=== PATIENT | male | born 1995 | race Caucasian/White ===

== ENCOUNTER 2016-06-25 17:28 | Emergency (ER) | payer BC ==
[~2016-06-25] VITALS: Ht 172.7 cm; Wt 82.0 kg
--- OUTSIDE RECORDS SUMMARY | 2016-06-25 17:32 | XMS REPORT | Referral Summary ---
Author Author [facility], Family [facility] Organization [facility] Address Unknown Phone Unavailable Care Team Providers Care Senior Administrative Services Officer Name Role Phone Andrew Perez Primary Care Physician [phone] Encounter VC Date(s): 06/27/15 - 06/27/15 [facility] [address] [place] [id number]- Discharge Disposition: 01-Home or Self Care Attending Physician: Andrew Perez DO Admitting Physician: Andrew Perez DO Vital Signs Most recent to 1 oldest [Reference Range]: Temperature Tympanic 36.4 degC [36.6-38.1 degC] *LOW* (06/27/15 1:58 PM) Peripheral Pulse 63 bpm Rate [60-100 bpm] (06/27/15 1:58 PM) Blood Pressure 115/70 mmHg [90-140/60-90 mmHg] (06/27/15 1:58 PM) Problem List No data available for this section Allergies, Adverse Reactions, Alerts No Known Medication Allergies Medications amoxicillin 875 mg oral tablet 875 mg 1 tabs, Oral, BID, X 10 days, # 20 tabs, 0 Refill(s), Pharmacy: [id number], 1 tabs Oral BID,x10 days Start Date: 06/27/15 Stop Date: 07/07/15 Status: Ordered Results No data available for this section Immunizations No data available for this section Procedures Procedure Date Related Diagnosis Body Site Internal fixation1 2010 1Left radial fx surgical repair Social History Social History Type Response Smoking Status Never smoker Assessment and Plan Extracted from: Title: Office Visit Note Author: Andrew Perez DO Date: 06/27/15 Assessment/Plan Acute bacterial pharyngitis 1. She bacterial pharyngitis. 2. Tessalon twice a day for 10 days. 3. Ibuprofen or Tylenol for the discomfort. Ordered: Office Visit Level 3 [place] [address] Orders: amoxicillin, 875 mg 1 tabs, Oral, BID, X 10 days, # 20 tabs, 0 Refill( s), Pharmacy: [id number], 1 tabs Oral BID,x10 days
--- OUTSIDE RECORDS SUMMARY | 2016-06-25 17:32 | XMS REPORT | Continuity of Care Document ---
Author Author [facility] Organization [facility] Address Unknown Phone Unavailable Allergies Active Description Code Type Severity Reaction Onset Reported/Identified Relationship to Patient Clinical Status Yes No Known Medication Allergies NKMA N/A N/A Medications Problems Procedures Results Encounters ACCT No. Visit Date/Time Discharge Status Pt. Type Provider Facility Loc./Unit Complaint [id number] 06/27/2015 13:52:00 2015 23:59:00 DIS Outpatient Andrew Perez [facility] SORE THROAT COUGH
[2016-06-25] MEDS ORDERED: NO ROUTINE MEDS (17:43)
[2016-06-25] MEDS ORDERED: HYDROCODONE/APAP 5 mg/325 mg TABLET PO ONE (18:15)
[2016-06-25] MEDS ORDERED: IBUPROFEN 800 MG TABLET PO ONE (18:15)
--- NOTE | 2016-06-25 18:35 | NUR ---
PROVIDER/PROCEDURE TED DUBOSE APRN SOAKED AND CLEANED PT'S RIGHT FOOT AND THEN RELEASED PRESSURE UNDER RIGHT GREAT TOE NAIL WITH A STERILE NEEDLE.
--- NOTE | 2016-06-25 18:42 | ERPDOC ---
Departure Disposition Decision Date: Jun 25, 2016 Disposition Decision Time: 18:39 Disposition: 01 DISCHARGED HOME, SELF-CARE Impression Impression Impression: Primary Impression: Subungual hematoma Condition: Stable Seen By: Mid-level only Referrals: [facility] 1 Week Patient Instructions: Subungual Hematoma (ED) Problems/Meds/Labs Reviewed?: Yes Medications reviewed and manag: Yes Additional Instructions: TYLENOL AND MOTRIN FOR PAIN. Follow up care ordered?: Yes Mental Status: Alert, Oriented HPI General Chief Complaint: Lower Extremity Pain Stated Complaint: SWOLLEN LEFT TOE Time Seen by Provider: 17:41 Source: patient Exam Limitations: language barrier HPI Foot/Ankle Initial Comments Pain to left great toe after dropping a paint ball gun on foot 2 days ago. Patient presents with subungal hematoma to about 75% of the great toenail. Location: left: 1st toe Method of Injury: other (dropped paint gun on toe. ) Modifying Factors: IMPROVES WITH: immobilization, pain medication, WORSE WITH: movement Allergies: Coded Allergies: No Known Allergies (Unverified , 06/25/16) Past History Past Medical History Pt denies signifigant PMH Review of Systems Constitutional Constitutional: see HPI Eyes General: DENIES: burning, itching Lids/Accessories: DENIES: erythema, swelling ENMT Ears: DENIES: pain Hearing: DENIES: tinnitus Balance: DENIES: vertigo Sinuses: DENIES: rhinorrhea Mouth/Throat: DENIES: painful swallowing, scratchy throat, sore throat Cardiovascular Cardiac: DENIES: chest pain, orthopnea Rhythm/Rate: DENIES: tachycardia Pulmonary Respiratory: DENIES: cough, pleuritic chest pain GI Upper Abdomen: DENIES: nausea, pain Lower Abdomen: DENIES: diarrhea, pain General: DENIES: dysuria, frequency, urgency Musculoskeletal General: pain, see HPI, tenderness Integumentary Skin: DENIES: rash Neurological General: DENIES: headache, numbness Hematologic/Lymphatic Hematologic/Lymphatic: DENIES: anemia, easy bruising Exam General General Nourishment: well nourished, well developed, appears stated age, no acute distress General Body Habitus: well groomed Vital Signs: Temperature: 98.1, Source: Oral, Heart Rate: 64, Respiratory Rate : 16, BP: 128/72, Pulse Oximetry: 99 Height (Feet): 5 Height (Inches): 8.00 [employer] Foot/Ankle Foot/Ankle : Foot: other (bruising to left great toe ), NOT FOUND: swelling Toes: subungual hematoma Posterior Tibial Pulse: 3+ Dorsalis Pedis Pulse: 3+ Neurologic RN Documented GCS Eye Opening: Verbal: Motor: Total: Differential Diagnoses Considering: Contusion, Dislocation, Fracture, Sprain, Strain, Other (subungal hematoma ) Procedures Procedure Detail Procedure Details left great toe was cleansed with betadine and 18 g needle on 10cc syringe with used to creat 3 holes to the nail bed Bleeding from site noted immedately Progress Results/Orders Orders Procedure Category Date Status Time Hydrocodone/Acetaminophen PHA 06/25/16 Complete ([place] 5/325) 18:15 Ibuprofen (Motrin) PHA 06/25/16 Complete 18:15 Medications Current ED Medications Acetaminophen/ Hydrocodone Bitart ([place] 5/325) 1 tab O ONCE PO Last administered on 06/25/16 18:21; Start 06/25/16 at 18:15; Stop 06/25/16 at 18:19 ; Status DC Ibuprofen (Motrin) 800 mg O ONCE PO Last administered on 06/25/16 18:21; Start 06/25/16 at 18:15; Stop 06/25/16 at 18:19; Status DC TED DUBOSE APRN Jun 25, 2016 18:42
[2016-06-25 18:44] VITALS: BP 122/68; PULSE 38; RESP 16; TEMP 97.8; O2SAT 97
--- OUTSIDE RECORDS SUMMARY | 2016-06-25 18:44 | XMS REPORT | Continuity of Care Document ---
Author Author [facility] Organization [facility] Address Unknown Phone Unavailable Allergies Active Description Code Type Severity Reaction Onset Reported/Identified Relationship to Patient Clinical Status Yes No Known Medication Allergies NKMA N/A N/A Medications Problems Procedures Results Encounters ACCT No. Visit Date/Time Discharge Status Pt. Type Provider Facility Loc./Unit Complaint [id number] 06/27/2015 13:52:00 2015 23:59:00 DIS Outpatient Andrew Perez Via [facility] SORE THROAT COUGH
== END 2016-06-25 18:44 | disposition home or self-care (01) ==
LOC: ED 17:28
DX: S90.212A Contusion of left great toe with damage to nail, initial encounter (principal); W20.8XXA Other cause of strike by thrown, projected or falling object, initial encounter; Y93.9 Activity, unspecified; Y92.009 Unspecified place in unspecified non-institutional (private) residence as the place of occurrence of the external cause; Y99.8 Other external cause status